=== PATIENT | female | born 1975 | race Caucasian/White ===

== ENCOUNTER 2017-08-11 18:23 | Emergency (ER) | payer OTHER ==
[~2017-08-11] VITALS: Ht 167.6 cm; Wt 111.1 kg
[~2017-08-11 18:23] MED LIST: ALBU90OI INH; AMIT50 PO; AMOX1XR PO; AMOX500 PO; AZIT250 PO; Augmentin 875-1 EACH PO; BENZ100A PO; CEFD300 PO; CEPH500 PO; CETI10 PO; CLON.5 PO; CODACE30; CODEINE-GUAIFE120 ML PO; CODGUAEL PO; Cyclobenzaprine5 MG PO; DIPH50 PO; DOXY100 PO; FLUC150A PO; FLUO10 PO; FURO20 PO; HYDACE5 PO; HYDCOR2.5B TOP; HYDGUAL120 PO; HYDPAM25 PO; HYDPAM50 PO; Hydroxyzine HCl50 MG PO; IBUHYD PO; IBUP400 PO; IBUP600 PO; IBUP800 PO; KETO10 PO; LEVO750 PO; LOXA5 PO; NAPR500 PO; OXYACE5T PO; PANT40 PO; PENVK500 PO; PRED20 PO; Pepcid40 MG PO; RXAMOX500 PO; RXANTBENOT AU; RXOXYACE PO; SPACE CHAMBER1 EACH MC; TRAM50 PO; TRIA80TC TOP; Veetids 500500 MG PO; Vistaril50 MG PO; Zofran4 MG PO; [UNRECOGNIZED DRUG - REMARK]
== END 2017-08-11 19:18 | disposition home or self-care (01) ==
LOC: ER 18:23
DX: L23.7 Allergic contact dermatitis due to plants, except food (principal); Z88.8 Allergy status to other drugs, medicaments and biological substances; Z79.899 Other long term (current) drug therapy; F32.9 Major depressive disorder, single episode, unspecified; Z87.891 Personal history of nicotine dependence
CPT/HCPCS: 96372; 99283; J3301; Q0163

== ENCOUNTER → 2017-11-18 | Outpatient (CLI) | payer OTHER | LOC: LAB SHORT 15:41 → LAB EV 15:41 | DX: L08.9 Local infection of the skin and subcutaneous tissue, unspecified (principal) | CPT/HCPCS: 87070; 87077; 87147; 87186; 87205 ==

== ENCOUNTER → 2018-05-25 | Outpatient (CLI) | payer OTHER | END | disposition home or self-care (01) | LOC: LAB UCHC 11:40 → LAB SHORT 11:40 | DX: K21.9 Gastro-esophageal reflux disease without esophagitis (principal) | CPT/HCPCS: 87338 ==

== ENCOUNTER → 2018-06-06 | Outpatient (CLI) | payer OTHER | END | disposition home or self-care (01) | LOC: LAB SHORT 18:20 → LAB EV 18:20 | DX: L02.416 Cutaneous abscess of left lower limb (principal) | CPT/HCPCS: 87070; 87075; 87077; 87147; 87186; 87205 ==

== ENCOUNTER 2018-12-13 18:46 | Emergency (ER) | payer OTHER ==
[~2018-12-13] VITALS: Ht 167.6 cm; Wt 113.4 kg
[2018-12-13] MEDS ORDERED: Prednisone20 MG PO (18:55)
== END 2018-12-13 19:05 | disposition home or self-care (01) ==
LOC: ER 18:46
DX: L23.7 Allergic contact dermatitis due to plants, except food (principal); F32.9 Major depressive disorder, single episode, unspecified; Z87.891 Personal history of nicotine dependence; Z88.8 Allergy status to other drugs, medicaments and biological substances; Z88.7 Allergy status to serum and vaccine; Z79.899 Other long term (current) drug therapy
CPT/HCPCS: 96372; 99282-25; J3301

== ENCOUNTER 2019-05-22 22:35 | Emergency (ER) | payer OTHER ==
[~2019-05-22] VITALS: Ht 167.6 cm; Wt 120.2 kg
[~2019-05-22 22:35] MED LIST changes: +Prednisone20 MG PO
[2019-05-22] MEDS ORDERED: AMIT50 PO (22:44)
[2019-05-22] MEDS ORDERED: BUSP10 PO (22:44)
[2019-05-22] MEDS ORDERED: SERT25 PO (22:45)
== END 2019-05-23 01:55 | disposition home or self-care (01) ==
LOC: ER 22:35
DX: R51 Headache (principal); Z87.891 Personal history of nicotine dependence; Z88.7 Allergy status to serum and vaccine
CPT/HCPCS: 96374; 96375; 99283-25; J1200; J1885; J2550; J3030

== ENCOUNTER 2019-08-25 08:00 | Emergency (ER) | payer OTHER ==
[~2019-08-25] VITALS: Ht 167.6 cm; Wt 121.1 kg
[~2019-08-25 08:00] MED LIST changes: +BUSP10 PO; +SERT25 PO
[2019-08-25] MEDS ORDERED: DICL75ER PO (08:21)
[2019-08-25] MEDS ORDERED: OLAN10 PO (08:21)
[2019-08-25] MEDS ORDERED: PANT20 PO (08:22)
[2019-08-25] MEDS ORDERED: HYDCHL25 PO (08:22)
== END 2019-08-25 09:05 | disposition home or self-care (01) ==
LOC: ER 08:00
DX: S30.0XXA Contusion of lower back and pelvis, initial encounter (principal); M54.2 Cervicalgia; Z88.7 Allergy status to serum and vaccine; Z88.8 Allergy status to other drugs, medicaments and biological substances; Z79.899 Other long term (current) drug therapy; F32.9 Major depressive disorder, single episode, unspecified; Z87.891 Personal history of nicotine dependence; W19.XXXA Unspecified fall, initial encounter
CPT/HCPCS: 99283

== ENCOUNTER 2019-09-03 20:59 | Emergency (ER) | payer OTHER ==
[~2019-09-03] VITALS: Ht 167.6 cm; Wt 121.1 kg
[~2019-09-03 20:59] MED LIST changes: +DICL75ER PO; +HYDCHL25 PO; +OLAN10 PO; +PANT20 PO
[2019-09-03] MEDS ORDERED: POTA10T (22:06)
[2019-09-03] MEDS ORDERED: IRON236 M1 (22:06)
[2019-09-03] MEDS ORDERED: Cyclobenzaprine5 MG PO (22:37)
[2019-09-03] MEDS ORDERED: KETO10 PO (22:37)
== END 2019-09-03 22:55 | disposition home or self-care (01) ==
LOC: ER 20:59
DX: S16.1XXA Strain of muscle, fascia and tendon at neck level, initial encounter (principal); Z88.8 Allergy status to other drugs, medicaments and biological substances; Z88.7 Allergy status to serum and vaccine; Z79.899 Other long term (current) drug therapy; F32.9 Major depressive disorder, single episode, unspecified; Z87.891 Personal history of nicotine dependence; V89.2XXA Person injured in unspecified motor-vehicle accident, traffic, initial encounter
CPT/HCPCS: 96372; 99284-25; J1885

== ENCOUNTER 2020-03-19 20:05 | Emergency (ER) | payer OTHER ==
[~2020-03-19] VITALS: Ht 167.6 cm; Wt 122.5 kg
[~2020-03-19 20:05] MED LIST changes: +IRON236 M1; +POTA10T
[2020-03-19] MEDS ORDERED: HYDR1TAB94 PO (21:14)
== END 2020-03-20 01:57 | disposition home or self-care (01) ==
LOC: ER 20:05
DX: S82.892A Other fracture of left lower leg, initial encounter for closed fracture (principal); Z88.8 Allergy status to other drugs, medicaments and biological substances; Z88.7 Allergy status to serum and vaccine; Z79.899 Other long term (current) drug therapy; Z87.891 Personal history of nicotine dependence; W17.2XXA Fall into hole, initial encounter
CPT/HCPCS: 29515; 73610; 99283-25; A9270

== ENCOUNTER 2020-10-21 19:55 | Emergency (ER) | payer OTHER ==
[~2020-10-21] VITALS: Ht 167.6 cm; Wt 113.4 kg
[~2020-10-21 19:55] MED LIST changes: +HYDR1TAB94 PO
[2020-10-21 20:29] LABS: BASOPHILS ABSOLUTE AUTO 0.11 K/mm3 (0.00-0.23); BASOPHILS PERCENT AUTO 1 % (0-2); EOSINOPHILS ABSOLUTE AUTO 0.44 K/mm3 (0.00-0.68); EOSINOPHILS PERCENT AUTO 3 % (0-6); Hematocrit 39.8 % (33.0-51.0); Mean Corpuscular HGB 26.7 pg (26.0-34.0); Mean Corpuscular HGB Conc 32.7 g/dL (31.5-36.5); Mean Corpuscular Volume 82 fL (80-100); Mean Platelet Volume 8.3 fL (9.1-12.4); Platelet Count 563 K/mm3 (150-400); RDW Coefficient Variation 13.8 % (11.7-14.2); Red Blood Cell Count 4.87 M/mm3 (3.80-5.20); White Blood Cell Count 14.81 K/mm3 (4.00-11.30)
[2020-10-21 20:30] LABS: IMMATURE GRAN ABSOLUTE AUTO 0.13 K/mm3 (0.00-0.10); IMMATURE GRAN PERCENT AUTO 1 % (0-1); LYMPHOCYTES ABSOLUTE AUTO 5.35 K/mm3 (0.84-5.20); LYMPHOCYTES PERCENT AUTO 36 % (21-46); MONOCYTES ABSOLUTE AUTO 0.89 K/mm3 (0.16-1.47); MONOCYTES PERCENT AUTO 6 % (4-13); NEUTROPHILS ABSOLUTE AUTO 7.89 K/mm3 (1.96-9.15); NEUTROPHILS PERCENT AUTO 53 % (41-73)
[2020-10-21 20:54] LABS: Albumin, Blood 3.5 g/dL (3.4-5.0); Albumin/Globulin Ratio 0.7 (0.8-1.8); Bilirubin, Total 0.2 mg/dL (0.1-1.0); Bun/Creatinine Ratio 17.6 (12.0-20.0); Calcium, Blood 9.9 mg/dL (8.5-10.1); Creatinine, Blood 1.02 mg/dL (0.40-1.00); Globulin, Blood 5.3 g/dL (2.2-4.0); Potassium, Blood 3.6 mmol/L (3.5-5.5); Total Protein, Blood 8.8 g/dL (6.4-8.2)
[2020-10-21] MEDS ORDERED: CEPH500 PO (22:44)
[2020-10-21] MEDS ORDERED: HYDPAM25 PO (22:49)
[2020-10-21] MEDS ORDERED: DOCU100 PO (22:49)
[2020-10-21] MEDS ORDERED: INSULANPEN (22:50)
== END 2020-10-21 23:20 | disposition home or self-care (01) ==
LOC: ER 19:55
PROVIDERS: Physician Assistant
DX: L02.211 Cutaneous abscess of abdominal wall (principal); Z88.7 Allergy status to serum and vaccine; Z88.3 Allergy status to other anti-infective agents
CPT/HCPCS: 36415; 80053; 83690; 85025; 99283; A9270

== ENCOUNTER → 2020-12-04 | Outpatient (CLI) | payer OTHER ==
[~2020-12-04] MED LIST changes: +DOCU100 PO; +INSULANPEN
== END | disposition home or self-care (01) ==
LOC: LAB SHORT 15:46 → LAB 15:46
DX: N39.0 Urinary tract infection, site not specified (principal)
CPT/HCPCS: 87077; 87086; 87186

== ENCOUNTER → 2021-01-03 | Outpatient (CLI) | payer OTHER | END | disposition home or self-care (01) | LOC: LAB 12:51 → LAB SHORT 12:51 | DX: L03.311 Cellulitis of abdominal wall (principal) | CPT/HCPCS: 87070; 87075; 87077; 87147; 87186; 87205 ==

== ENCOUNTER 2021-06-18 13:12 | Emergency (ER) | payer OTHER ==
[~2021-06-18] VITALS: Ht 167.6 cm; Wt 116.1 kg
== END 2021-06-18 15:39 | disposition home or self-care (01) ==
LOC: ER 13:12
DX: L23.7 Allergic contact dermatitis due to plants, except food (principal); Z79.899 Other long term (current) drug therapy
CPT/HCPCS: 96372; 99282-25; J0702; J3301

== ENCOUNTER 2021-07-13 16:18 | Emergency (ER) | payer OTHER ==
[~2021-07-13] VITALS: Ht 167.6 cm; Wt 116.1 kg
[2021-07-13] MEDS ORDERED: KETO10 PO (17:22)
== END 2021-07-13 17:31 | disposition home or self-care (01) ==
LOC: ER 16:18
DX: M54.32 Sciatica, left side (principal); F32.A Depression, unspecified; F12.21 Cannabis dependence, in remission; Z79.899 Other long term (current) drug therapy; Z79.4 Long term (current) use of insulin
CPT/HCPCS: 73502; J1885

== ENCOUNTER 2021-08-17 19:37 | Emergency (ER) | payer OTHER ==
[~2021-08-17] VITALS: Ht 167.6 cm; Wt 120.2 kg
[2021-08-17] MEDS ORDERED: Prednisone20 MG PO (21:20)
== END 2021-08-17 21:34 | disposition home or self-care (01) ==
LOC: ER 19:37
DX: M54.50 Low back pain, unspecified (principal); G89.29 Other chronic pain; M51.36 Other intervertebral disc degeneration, lumbar region; F32.A Depression, unspecified; Z79.899 Other long term (current) drug therapy; Z79.4 Long term (current) use of insulin; Z88.8 Allergy status to other drugs, medicaments and biological substances; Z88.7 Allergy status to serum and vaccine
CPT/HCPCS: 96372; 99282-25; A9270; J1885; J7512

== ENCOUNTER 2021-12-06 19:48 | Emergency (ER) | payer OTHER ==
[~2021-12-06] VITALS: Ht 167.6 cm; Wt 118.8 kg
[~2021-12-06 19:48] MED LIST changes: +LIDO700A20 TOP; +Percocet 5-3251 EACH PO
== END 2021-12-06 22:43 | disposition home or self-care (01) ==
LOC: ER 19:48
DX: M54.50 Low back pain, unspecified (principal); Z88.8 Allergy status to other drugs, medicaments and biological substances; Z88.7 Allergy status to serum and vaccine; Z79.899 Other long term (current) drug therapy; Z79.4 Long term (current) use of insulin; W01.0XXA Fall on same level from slipping, tripping and stumbling without subsequent striking against object, initial encounter
CPT/HCPCS: 72100; 72220; 96372; 99283-25; A9270; J1885

== ENCOUNTER 2021-12-24 00:59 | Emergency (ER) | payer OTHER ==
[~2021-12-24] VITALS: Ht 167.6 cm; Wt 118.8 kg
[2021-12-24] MEDS ORDERED: CYCL10 PO (01:42)
== END 2021-12-24 01:55 | disposition home or self-care (01) ==
LOC: ER 00:59
DX: M54.50 Low back pain, unspecified (principal); G89.29 Other chronic pain; Z88.8 Allergy status to other drugs, medicaments and biological substances; Z88.7 Allergy status to serum and vaccine; Z79.899 Other long term (current) drug therapy; Z79.4 Long term (current) use of insulin
CPT/HCPCS: A9270; J1885

== ENCOUNTER 2021-12-28 14:48 | Emergency (ER) | payer OTHER ==
[~2021-12-28] VITALS: Ht 167.6 cm; Wt 118.8 kg
[~2021-12-28 14:48] MED LIST changes: +CYCL10 PO
== END 2021-12-28 16:43 | disposition home or self-care (01) ==
LOC: ER 14:48
DX: G89.29 Other chronic pain (principal); M54.50 Low back pain, unspecified; Z88.7 Allergy status to serum and vaccine; Z88.8 Allergy status to other drugs, medicaments and biological substances; Z79.899 Other long term (current) drug therapy; Z79.4 Long term (current) use of insulin
CPT/HCPCS: A9270; J1885

== ENCOUNTER → 2022-01-20 | Outpatient (CLI) | payer OTHER ==
[~2022-01-20] MED LIST changes: +VANDAZOLE VAG
[2022-01-21 09:31] LABS: Candida species (DNA Probe) Negative (NEGATIVE); G. vaginalis (DNA Probe) Positive (NEGATIVE); T. vaginalis (DNA Probe) Negative (NEGATIVE)
[2022-01-23 18:06] LABS: CHLAMYDIA BY NAA Negative (Negative); GONOCOCCUS BY NAA Negative (Negative); TRICH VAG BY NAA Negative (Negative)
== END | disposition home or self-care (01) ==
LOC: LAB SHORT 17:53
PROVIDERS: Physician Assistant Surgical
DX: N76.0 Acute vaginitis (principal)
CPT/HCPCS: 87480; 87491; 87510; 87591; 87660; 87661

== ENCOUNTER 2022-06-17 00:29 | Emergency (ER) | payer OTHER ==
[~2022-06-17] VITALS: Ht 167.6 cm; Wt 114.3 kg
[2022-06-17 04:30] VITALS: BP 142/86
[2022-06-17] MEDS ORDERED: CYCL10 PO (05:21)
== END 2022-06-17 05:55 | disposition home or self-care (01) ==
LOC: ER 00:29
DX: M54.50 Low back pain, unspecified (principal); G89.29 Other chronic pain; W18.30XA Fall on same level, unspecified, initial encounter; Z88.8 Allergy status to other drugs, medicaments and biological substances; Z88.7 Allergy status to serum and vaccine; Z79.899 Other long term (current) drug therapy; Z79.4 Long term (current) use of insulin
CPT/HCPCS: 72100; 96372; 99283-25; A9270; J1885

== ENCOUNTER 2022-07-29 23:19 | Emergency (ER) | payer OTHER ==
[~2022-07-29] VITALS: Ht 167.6 cm; Wt 118.4 kg
[~2022-07-29 23:19] MED LIST changes: -SERT25 PO; +SERT50 PO
[2022-07-30 00:22] LABS: BASOPHILS ABSOLUTE AUTO 0.11 K/mm3 (0.00-0.23); BASOPHILS PERCENT AUTO 1 % (0-2); EOSINOPHILS ABSOLUTE AUTO 0.52 K/mm3 (0.00-0.68); EOSINOPHILS PERCENT AUTO 5 % (0-6); Hematocrit 34.1 % (33.0-51.0); Hemoglobin 10.6 g/dL (11.5-16.0); IMMATURE GRAN ABSOLUTE AUTO 0.03 K/mm3 (0.00-0.10); IMMATURE GRAN PERCENT AUTO 0 % (0-1); LYMPHOCYTES ABSOLUTE AUTO 3.36 K/mm3 (0.84-5.20); LYMPHOCYTES PERCENT AUTO 34 % (21-46); MONOCYTES ABSOLUTE AUTO 0.65 K/mm3 (0.16-1.47); MONOCYTES PERCENT AUTO 7 % (4-13); Mean Corpuscular HGB 23.8 pg (26.0-34.0); Mean Corpuscular HGB Conc 31.1 g/dL (31.5-36.5); Mean Corpuscular Volume 77 fL (80-100); Mean Platelet Volume 8.8 fL (9.1-12.4); NEUTROPHILS ABSOLUTE AUTO 5.21 K/mm3 (1.96-9.15); NEUTROPHILS PERCENT AUTO 53 % (41-73); Platelet Count 457 K/mm3 (150-400); RDW Coefficient Variation 18.2 % (11.7-14.2); RDW Standard Deviation 50.4 fL (35.1-46.3); Red Blood Cell Count 4.45 M/mm3 (3.80-5.20); White Blood Cell Count 9.88 K/mm3 (4.00-11.30)
[2022-07-30 00:25] LABS: Source, Urine Clean Catch
[2022-07-30 00:30] LABS: Bilirubin, Urine Neg (Neg); Blood, Urine 1+ (Neg); Color, Urine Yellow (P-Yellow); Glucose Qualitative, Urine Neg (Neg); Ketones, Urine Neg (Neg); Leukocyte Esterase, Urine 3+ (Neg); Nitrite, Urine Neg (Neg); Protein, Urine Neg (Neg); Specific Gravity, Urine 1.025 (1.003-1.022); Urobilinogen, Urine NORM (Normal)
[2022-07-30 00:41] LABS: Appearance, Urine Hazy (Clear)
[2022-07-30 00:43] LABS: Bacteria Many /hpf; Red Blood Cells, Urine 0-2 /hpf (0-2); Squamous Epithelial Cells Mod /hpf (Few)
[2022-07-30 00:52] LABS: Alanine Aminotransfer (ALT/SGP 16 U/L (12-78); Albumin, Blood 3.3 g/dL (3.4-5.0); Albumin/Globulin Ratio 0.8 (0.8-1.8); Alk Phos 70 U/L (50-136); Anion Gap 6 mmol/L (6-16); Aspartate Aminotrans (AST/SGOT 27 U/L (12-37); Bilirubin, Total <0.1 mg/dL (0.1-1.0); Blood Urea Nitrogen 18 mg/dL (8-24); Bun/Creatinine Ratio 19.9 (12.0-20.0); CO2, Blood 23 mmol/L (21-32); Calcium, Blood 9.4 mg/dL (8.5-10.1); Chloride, Blood 110 mmol/L (98-108); Creatinine, Blood 0.91 mg/dL (0.40-1.00); Globulin, Blood 4.3 g/dL (2.2-4.0); Glomerular Filtration Rate 79 (60-); Glucose, Blood 144 mg/dL (70-99); Potassium, Blood 4.2 mmol/L (3.5-5.5); Sodium, Blood 139 mmol/L (136-145); Total Protein, Blood 7.6 g/dL (6.4-8.2)
[2022-07-30 02:00] VITALS: BP 115/83
[2022-07-30] MEDS ORDERED: CEFP200 PO (02:05)
[2022-07-30] MEDS ORDERED: ONDA4ODT MM (02:06)
[2022-07-30] MEDS ORDERED: HYDPAM50 PO (03:03)
== END 2022-07-30 03:34 | disposition home or self-care (01) ==
LOC: ER 23:19
PROVIDERS: Emergency Medicine
DX: N39.0 Urinary tract infection, site not specified (principal); E11.9 Type 2 diabetes mellitus without complications; Z88.1 Allergy status to other antibiotic agents; Z88.7 Allergy status to serum and vaccine; Z79.4 Long term (current) use of insulin
CPT/HCPCS: 80053; 81001; 83690; 85025; 87077; 87086; 87186; 96365; 96375; 99284; J0696; J2405

== ENCOUNTER 2022-08-10 19:50 | Emergency (ER) | payer OTHER ==
[~2022-08-10] VITALS: Ht 167.6 cm; Wt 117.9 kg
[~2022-08-10 19:50] MED LIST changes: +CEFP200 PO; +ONDA4ODT MM
[2022-08-11] VITALS: BP 144/95
[2022-08-11] MEDS ORDERED: LIDOCAINE1 EACH TOP (00:36)
[2022-08-11] MEDS ORDERED: Robaxin750 MG PO (00:36)
== END 2022-08-11 00:58 | disposition home or self-care (01) ==
LOC: ER 19:50
DX: M54.50 Low back pain, unspecified (principal); Z88.8 Allergy status to other drugs, medicaments and biological substances; Z88.7 Allergy status to serum and vaccine; Z79.899 Other long term (current) drug therapy; Z79.4 Long term (current) use of insulin; E11.9 Type 2 diabetes mellitus without complications
CPT/HCPCS: 72100; 96374; 96375; 99283-25; A9270; J1885; J2270

== ENCOUNTER 2022-11-27 09:25 | Emergency (ER) | payer OTHER ==
[~2022-11-27] VITALS: Ht 177.8 cm; Wt 108.9 kg
[~2022-11-27 09:25] MED LIST changes: +LIDOCAINE1 EACH TOP; +Robaxin750 MG PO
[2022-11-27 09:30] VITALS: BP 161/91
[2022-11-27] MEDS ORDERED: Prednisone20 MG PO (09:35)
== END 2022-11-27 10:38 | disposition home or self-care (01) ==
LOC: ER 09:25
DX: G89.29 Other chronic pain (principal); M54.9 Dorsalgia, unspecified; M54.32 Sciatica, left side; E11.9 Type 2 diabetes mellitus without complications; Z88.8 Allergy status to other drugs, medicaments and biological substances; Z88.7 Allergy status to serum and vaccine; Z79.4 Long term (current) use of insulin; Z79.52 Long term (current) use of systemic steroids; Z87.891 Personal history of nicotine dependence
CPT/HCPCS: 96372; 99283-25; A9270; J1885; J7512

== ENCOUNTER 2023-01-24 18:10 | Emergency (ER) | payer OTHER ==
[~2023-01-24] VITALS: Ht 167.6 cm; Wt 114.3 kg
[2023-01-24 18:33] VITALS: BP 140/88
== END 2023-01-24 19:10 | disposition home or self-care (01) ==
LOC: ER 18:10
DX: E11.9 Type 2 diabetes mellitus without complications (principal); Z88.7 Allergy status to serum and vaccine; Z88.1 Allergy status to other antibiotic agents; Z79.899 Other long term (current) drug therapy; Z79.4 Long term (current) use of insulin; Z87.891 Personal history of nicotine dependence
CPT/HCPCS: 82947; 99284; A9270

== ENCOUNTER 2023-07-07 10:09 | Day surgery (SDC) | payer OTHER ==
[~2023-07-07] VITALS: Ht 167.6 cm; Wt 118.1 kg
[2023-07-07] VITALS (14 sets, daily range): BP systolic 115–179; BP diastolic 66–104
[~2023-07-07 10:09] MED LIST changes: +Dexamethasone Sod Phos 10 MG/ML 1ML VIAL ONE; +FentaNYL Citrate 50 MCG/ML 2 ML Injection ONE; +INSULIN LISPRO; +Ketorolac Tromethamine 30mg Vial ONE; +Lactated Ringer's 1,000 ML IV SCH; +METF500 PO; +Ondansetron HCl 2 MG / ML 2ML Vial ONE; +Rocuronium Bromide 10 MG/ML 5ML Injection IV ONE; +SERT100 PO; +Sugammadex Sodium 200 MG/2ML SDV (100 MG/ML) ONE; +TYLENOL; +propofoL 20 ML IV ONE
[2023-07-07] MEDS ORDERED: CeFAZolin Sodium 2,000 MG in NS 100 ML IV SCH (10:15)
[2023-07-07] MEDS ORDERED: AMIT50 PO (10:26)
[2023-07-07] MEDS ORDERED: IRON18 MG PO (10:26)
[2023-07-07] MEDS ORDERED: ATOR20 PO (10:26)
[2023-07-07] MEDS ORDERED: VITAMIN D350 MC3 PO (10:26)
[2023-07-07] MEDS ORDERED: LORA10ER PO (10:27)
[2023-07-07] MEDS ORDERED: HYDHCL25 PO (10:27)
[2023-07-07] MEDS ORDERED: Vitamin C100 M1 PO (10:27)
[2023-07-07] MEDS ORDERED: PREG75 PO (10:27)
[2023-07-07] MEDS ORDERED: Methocarbamol500 MG PO (10:28)
[2023-07-07] MEDS ORDERED: Lidocaine 2%-Epineph 1:200000 20 ML SDV ONE (10:39)
[2023-07-07] MEDS ORDERED: Midazolam HCl 1MG / ML 2ML Vial IV ONE (10:55)
--- NOTE | 2023-07-07 10:58 | NUR ---
Ambulatory in Day Surgery. History, Chart, Medications and Allergies reviewed before start of procedure. Lungs clear T/O to Auscultation. Patient confirms NPO status and agrees with scheduled surgery. Pre-Op teaching done. Pt verbalizes understanding. Patient States Post-Procedure ride home has been arranged. PT BELONGINGS PLACED UNDERNEATH [facility] FOR SAFE[facility]. PT SIGNED JEWELRY CONSENT FOR A STUD PIERCING TO HER VAGINA THAT CANNOT BE REMOVED.
[2023-07-07] MEDS ORDERED: Midazolam HCl 1MG / ML 2ML Vial ONE (10:59)
--- NOTE | 2023-07-07 11:25 | NUR ---
TYPE AND SCREEN DRAWN IN PREOP AND SENT TO LAB AWAITING RESULTS. LAB CALLED TO DRAW FOR TYPE CHECK. PT DIFFICULT IV START, UNABLE TO GET ENOUGH BLOOD TO COMPLETE TYPE CHECK IN SDS. DR SHELTON AND DR ESCOBAR NOTIFIED AND OKAY TO ROLL BACK TO OR. PER DR SHELTON AND [facility]OUNT [employer], THEY WILL TRY FOR ANOTHER IV AND TYPE CHECK IN OR.
[2023-07-07] MEDS ORDERED: Rocuronium Bromide 10 MG/ML 5ML Injection IV ONE (11:29)
[2023-07-07] MEDS ORDERED: FentaNYL Citrate 50 MCG/ML 2 ML Injection ONE ×2 (11:52→13:42)
[2023-07-07] MEDS ORDERED: Dexmedetomidine HCL 200 MCG / 2 ML ONE (11:56)
[2023-07-07] MEDS ORDERED: Simethicone 80 MG Chew PO PRN (13:30)
[2023-07-07] MEDS ORDERED: DiphenhydrAMINE HCL 25 MG Cap PO PRN (13:30)
[2023-07-07] MEDS ORDERED: Acetaminophen 325 MG TABLET PO PRN (13:30)
[2023-07-07] MEDS ORDERED: OxyCODONE HCL 5 MG TAB PO PRN (13:30)
[2023-07-07] MEDS ORDERED: FentaNYL Citrate 50 MCG/ML 2 ML Injection IV PRN (13:30)
[2023-07-07] MEDS ORDERED: Ibuprofen 400 MG Tab PO PRN (13:30)
[2023-07-07] MEDS ORDERED: Ondansetron HCl 2 MG / ML 2ML Vial IV PRN (13:30)
[2023-07-07] MEDS ORDERED: Lactated Ringer's 1,000 ML IV SCH (13:30)
[2023-07-07] MEDS ORDERED: HYDROmorphone HCl/Pf 1MG SYR ONE (13:42)
--- NOTE | 2023-07-07 14:34 | NUR ---
PT ARRIVED TO UNIT FROM PACU TRANSFERRED PT FROM [place] TO BED. INSTRUCTED ON USE OF CALL LIGHT. PT EAGER TO HAVE BASSETT REMOVED AND AMBULATE TO RESTROOM. VSS. LCA W/DIM BASES. 02 SATS 97% ON RA. LAP INCISIONS X2 W/STERI STRIPS W/SLIGHT AMOUNT OOZING NOTED. SMALL AMOUNT BLEEDING TO DULCE MARIA PAD. CALL LIGHT IN REACH.
--- NOTE | 2023-07-07 15:20 | NUR ---
TURNED OVER CARE TO MILADYS Harper RN.
--- NOTE | 2023-07-07 15:32 | NUR ---
CARE ASSUMED OF PT AT THIS TIME. PT ALERT AND ORIENTED DURING BEDSIDE REPORT. CALL LIGHT WITHIN REACH. PT REPORTS PAIN IS TOLERABLE.
[2023-07-07] MEDS ORDERED: Percocet 5-3251 EACH PO (16:54)
[2023-07-07] MEDS ORDERED: IBUP800 PO (16:55)
[2023-07-07 16:56] LABS: BASOPHILS ABSOLUTE AUTO 0.06 K/mm3 (0.00-0.23); BASOPHILS PERCENT AUTO 0 % (0-2); EOSINOPHILS ABSOLUTE AUTO 0.02 K/mm3 (0.00-0.68); EOSINOPHILS PERCENT AUTO 0 % (0-6); Hematocrit 35.1 % (33.0-51.0); Hemoglobin 11.3 g/dL (11.5-16.0); IMMATURE GRAN ABSOLUTE AUTO 0.09 K/mm3 (0.00-0.10); IMMATURE GRAN PERCENT AUTO 1 % (0-1); LYMPHOCYTES ABSOLUTE AUTO 1.19 K/mm3 (0.84-5.20); LYMPHOCYTES PERCENT AUTO 6 % (21-46); MONOCYTES ABSOLUTE AUTO 0.55 K/mm3 (0.16-1.47); MONOCYTES PERCENT AUTO 3 % (4-13); Mean Corpuscular HGB 26.2 pg (26.0-34.0); Mean Corpuscular HGB Conc 32.2 g/dL (31.5-36.5); Mean Corpuscular Volume 81 fL (80-100); Mean Platelet Volume 9.1 fL (9.1-12.4); NEUTROPHILS ABSOLUTE AUTO 17.63 K/mm3 (1.96-9.15); NEUTROPHILS PERCENT AUTO 90 % (41-73); Platelet Count 405 K/mm3 (150-400); RDW Coefficient Variation 15.3 % (11.7-14.2); RDW Standard Deviation 45.2 fL (35.1-46.3); Red Blood Cell Count 4.31 M/mm3 (3.80-5.20); White Blood Cell Count 19.54 K/mm3 (4.00-11.30)
--- NOTE | 2023-07-07 17:24 | NUR ---
DISCHARGE PT PROVIDED WITH WRITTEN AND VERBAL DISCHARGE INSTRUCTIONS, PT REPORTED UNDERSTANDING. PT ABLE TO VOID, TOLERATE PO, VSS, PT AMBULATED PRIOR TO DISCHARGE. WRITTEN PRESCRIPTON PROVIDED TO PT'S MOTHER PER PT REQUEST. PT ASSISTED OUT IN W/C AT 1715.
[2023-07-07] MEDS ORDERED: Ketorolac Tromethamine 30mg Vial IV SCH (18:00)
== END 2023-07-07 15:15 | disposition home or self-care (01) ==
LOC: ORSCMMR 10:09 → ORD 10:30 → ORSCMMR 10:30 → SURS 14:48 → ORSCMMR 15:15
PROVIDERS: Obstetrics & Gynecology
PROC: 0UT9FZZ Resection of Uterus, Via Natural or Artificial Opening With Percutaneous Endoscopic Assistance (ICD-10-PCS; principal; 2023-07-07 10:30)
DX: N93.8 Other specified abnormal uterine and vaginal bleeding (principal); N80.03 Adenomyosis of the uterus; D25.9 Leiomyoma of uterus, unspecified; K21.9 Gastro-esophageal reflux disease without esophagitis; E11.9 Type 2 diabetes mellitus without complications; E66.01 Morbid (severe) obesity due to excess calories; Z68.41 Body mass index [BMI] 40.0-44.9, adult; G40.909 Epilepsy, unspecified, not intractable, without status epilepticus; Z79.84 Long term (current) use of oral hypoglycemic drugs; Z79.899 Other long term (current) drug therapy; Z79.4 Long term (current) use of insulin
CPT/HCPCS: 36415; 82947; 85025; 86850; 86900; 86901; 88307; A9270; J0690; J1100; J1170; J1885; J2250; J2405; J2704; J3010; J7120

== ENCOUNTER → 2024-02-23 | Outpatient (CLI) | payer OTHER ==
[~2024-02-23] MED LIST changes: +ATOR20 PO; -Dexamethasone Sod Phos 10 MG/ML 1ML VIAL ONE; -FentaNYL Citrate 50 MCG/ML 2 ML Injection ONE; +HYDHCL25 PO; +IRON18 MG PO; -Ketorolac Tromethamine 30mg Vial ONE; +LORA10ER PO; -Lactated Ringer's 1,000 ML IV SCH; +Methocarbamol500 MG PO; -Ondansetron HCl 2 MG / ML 2ML Vial ONE; +PREG75 PO; -Rocuronium Bromide 10 MG/ML 5ML Injection IV ONE; -Sugammadex Sodium 200 MG/2ML SDV (100 MG/ML) ONE; +VITAMIN D350 MC3 PO; +Vitamin C100 M1 PO; -propofoL 20 ML IV ONE
[2024-02-27 20:08] LABS: HCV QNT BY NAAT (IU/ML) Not Detected; HCV QNT BY NAAT (LOG IU/ML) Not Detected; HCV QNT BY NAAT INTERP Not Detected (Not Detected)
== END | disposition home or self-care (01) ==
LOC: LAB 19:03 → LAB SHORT 19:03
PROVIDERS: Student in an Organized Health Care Education/Training Program
DX: B18.2 Chronic viral hepatitis C (principal)
CPT/HCPCS: 87522

== ENCOUNTER 2024-12-24 15:57 | Emergency (ER) | payer OTHER ==
[~2024-12-24] VITALS: Ht 167.6 cm; Wt 120.2 kg
[2024-12-24] MEDS ORDERED: Ketorolac Tromethamine 15mg Vial IV ONE (16:10)
[2024-12-24] MEDS ORDERED: cholecalciferol (vit (16:14)
[2024-12-24] MEDS ORDERED: FLUTICASONE PRO16 GM (16:14)
[2024-12-24] MEDS ORDERED: BACLOFEN10 M4 PO (16:14)
[2024-12-24] MEDS ORDERED: LIDOCAINE1 EACH TOP (16:15)
[2024-12-24] MEDS ORDERED: ROSUVASTATIN CAL5 MG PO (16:15)
[2024-12-24] MEDS ORDERED: Morphine Sulfate 4 MG/1 ML Injection IV ONE ×2 (16:15→20:05)
[2024-12-24] MEDS ORDERED: PANTOPRAZOLE SO40 M2 PO (16:16)
[2024-12-24] MEDS ORDERED: ESTR2 PO (16:17)
[2024-12-24] MEDS ORDERED: FeroSul 325 mg (65 m (16:17)
[2024-12-24] MEDS ORDERED: albuterol sulfate HF (16:19)
[2024-12-24] MEDS ORDERED: IBUP600 PO (21:07)
[2024-12-24 21:15] VITALS: BP 150/85
== END 2024-12-24 21:28 | disposition home or self-care (01) ==
LOC: ER 15:57
DX: S16.1XXA Strain of muscle, fascia and tendon at neck level, initial encounter (principal); S39.012A Strain of muscle, fascia and tendon of lower back, initial encounter; S20.219A Contusion of unspecified front wall of thorax, initial encounter; S60.222A Contusion of left hand, initial encounter; E11.9 Type 2 diabetes mellitus without complications; Z87.891 Personal history of nicotine dependence; Z88.3 Allergy status to other anti-infective agents; Z88.7 Allergy status to serum and vaccine; Z79.4 Long term (current) use of insulin; Z79.84 Long term (current) use of oral hypoglycemic drugs; Z79.899 Other long term (current) drug therapy; V47.5XXA Car driver injured in collision with fixed or stationary object in traffic accident, initial encounter
CPT/HCPCS: 70450; 71045; 72100; 72125; 73130; 96374; 96375; 96376; 99285-25; J1885; J2270

== ENCOUNTER 2025-01-13 01:25 | Emergency (ER) | payer OTHER | END 2025-01-13 04:19 | disposition home or self-care (01) | LOC: ER 01:25 | DX: L02.512 Cutaneous abscess of left hand (principal); L03.114 Cellulitis of left upper limb; E11.9 Type 2 diabetes mellitus without complications; Z87.891 Personal history of nicotine dependence; Z88.3 Allergy status to other anti-infective agents; Z88.7 Allergy status to serum and vaccine; Z79.4 Long term (current) use of insulin; Z79.84 Long term (current) use of oral hypoglycemic drugs; Z79.899 Other long term (current) drug therapy; Z59.89 Other problems related to housing and economic circumstances ==

== ENCOUNTER 2025-02-10 13:37 | Emergency (ER) | payer OTHER ==
[~2025-02-10] VITALS: Ht 167.6 cm; Wt 118.8 kg
[~2025-02-10 13:37] MED LIST changes: +BACLOFEN10 M4 PO; +ESTR2 PO; +FLUTICASONE PRO16 GM; +FeroSul 325 mg (65 m; +PANTOPRAZOLE SO40 M2 PO; +ROSUVASTATIN CAL5 MG PO; +SULTRIDS PO; +albuterol sulfate HF; +cholecalciferol (vit
[2025-02-10] MEDS ORDERED: NS 1,000 ML IV SCH (14:05)
[2025-02-10] MEDS ORDERED: HYDROmorphone HCl/Pf 1MG SYR IV ONE ×2 (14:05→19:45)
[2025-02-10] MEDS ORDERED: Ondansetron HCl 2 MG / ML 2ML Vial IV ONE ×2 (14:05→19:45)
[2025-02-10 15:37] LABS: BASOPHILS ABSOLUTE AUTO 0.07 K/mm3 (0.00-0.23); BASOPHILS PERCENT AUTO 1 % (0-2); EOSINOPHILS ABSOLUTE AUTO 0.16 K/mm3 (0.00-0.68); EOSINOPHILS PERCENT AUTO 1 % (0-6); Hematocrit 41.8 % (33.0-51.0); Hemoglobin 14.1 g/dL (11.5-16.0); IMMATURE GRAN ABSOLUTE AUTO 0.06 K/mm3 (0.00-0.10); IMMATURE GRAN PERCENT AUTO 0 % (0-1); LYMPHOCYTES ABSOLUTE AUTO 2.36 K/mm3 (0.84-5.20); LYMPHOCYTES PERCENT AUTO 17 % (21-46); MONOCYTES ABSOLUTE AUTO 0.78 K/mm3 (0.16-1.47); MONOCYTES PERCENT AUTO 6 % (4-13); Mean Corpuscular HGB Conc 33.7 g/dL (31.5-36.5); Mean Corpuscular Volume 83 fL (80-100); NEUTROPHILS ABSOLUTE AUTO 10.78 K/mm3 (1.96-9.15); NEUTROPHILS PERCENT AUTO 76 % (41-73); NRBC ABSOLUTE 0.00 K/mm3 (0.00-0.02); NRBC Auto 0.0 /100 WBC (0.0-0.2); Platelet Count 355 K/mm3 (150-400); RDW Coefficient Variation 13.9 % (11.7-14.2); RDW Standard Deviation 41.1 fL (35.1-46.3)
[2025-02-10 15:50] LABS: Source, Urine Clean Catch
[2025-02-10 16:06] LABS: Alanine Aminotransfer (ALT/SGP 16 U/L (12-78); Albumin, Blood 3.6 g/dL (3.4-5.0); Albumin/Globulin Ratio 0.7 (0.8-1.8); Anion Gap 9 mmol/L (3-11); Aspartate Aminotrans (AST/SGOT 17 U/L (12-37); Beta HCG, Quantitative, Serum <1 mIU/mL (0-3); Bilirubin, Total 0.4 mg/dL (0.1-1.0); Blood Urea Nitrogen 10 mg/dL (8-24); CO2, Blood 26 mmol/L (21-32); Calcium, Blood 10.0 mg/dL (8.5-10.1); Chloride, Blood 99 mmol/L (98-108); Creatinine, Blood 0.75 mg/dL (0.40-1.00); Globulin, Blood 5.1 g/dL (2.2-4.0); Glucose, Blood 141 mg/dL (70-99); Potassium, Blood 3.9 mmol/L (3.5-5.5); Sodium, Blood 130 mmol/L (136-145); Total Protein, Blood 8.7 g/dL (6.4-8.2)
[2025-02-10 16:06] LABS: Bilirubin, Urine Neg (Neg); Color, Urine Yellow (P-Yellow); Glucose Qualitative, Urine Neg (Neg); Ketones, Urine Neg (Neg); Leukocyte Esterase, Urine Neg (Neg); Protein, Urine Neg (Neg); Specific Gravity, Urine 1.005 (1.003-1.022); Urobilinogen, Urine NORM (Normal)
[2025-02-10 16:16] LABS: Red Blood Cells, Urine 0-2 /hpf (0-2)
[2025-02-10] MEDS ORDERED: RX Prepack 2 Tabs Ondansetron ODT 4MG UD ONE (19:45)
[2025-02-10] MEDS ORDERED: RX Prepack 6 Tabs Oxycodone 5mg UD ONE (19:45)
[2025-02-10] MEDS ORDERED: Ketorolac Tromethamine 15mg Vial IV ONE (19:45)
[2025-02-10] MEDS ORDERED: TAMS.4ER PO (19:50)
[2025-02-10] MEDS ORDERED: ONDA4ODT MM (19:50)
[2025-02-10] MEDS ORDERED: CEFP200 PO (19:50)
[2025-02-10] MEDS ORDERED: Percocet 5-3251 EACH PO (19:50)
[2025-02-10] MEDS ORDERED: IBUP800 PO (19:50)
[2025-02-10 21:00] VITALS: BP 143/108
== END 2025-02-10 21:05 | disposition home or self-care (01) ==
LOC: ER 13:37
PROVIDERS: Student in an Organized Health Care Education/Training Program
DX: N39.0 Urinary tract infection, site not specified (principal); E11.65 Type 2 diabetes mellitus with hyperglycemia; E87.1 Hypo-osmolality and hyponatremia; N26.1 Atrophy of kidney (terminal); N20.0 Calculus of kidney; Z87.891 Personal history of nicotine dependence; Z79.4 Long term (current) use of insulin; Z79.84 Long term (current) use of oral hypoglycemic drugs; Z79.899 Other long term (current) drug therapy
CPT/HCPCS: 74177; 80053; 81001; 83690; 84702; 85025; 87086; 93005; 93010; 96361; 96374-59; 96375; 96376; 99284-25; A9270; J1171; J1885; J2405; J7030; Q9967